=== PATIENT | male | born 1960 | race Caucasian/White ===

== ENCOUNTER 2025-02-16 14:10 | Inpatient (IN) | payer MEDICARE ==
[~2025-02-16] VITALS: Ht 175.3 cm; Wt 83.5 kg
[2025-02-16] MEDS ORDERED: ONDANSETRON ODT 4 MG TAB.RAPDIS ONE (15:15)
[2025-02-16] MEDS ORDERED: MORPHINE SULFATE 4 MG/1 ML DISP.SYRIN ONE (15:15)
[2025-02-16] MEDS: MORPHINE SULFATE 4 MG/1 ML DISP.SYRIN IM ONE (15:19)
[2025-02-16] MEDS: ONDANSETRON ODT 4 MG TAB.RAPDIS SL ONE (15:19)
[2025-02-16] MEDS ORDERED: LORAZEPAM 1 MG TABLET ONE (16:18)
[2025-02-16] MEDS: LORAZEPAM 0.5 MG TABLET PO ONE (16:21)
[2025-02-16] MEDS ORDERED: CYCL5TAB PO (17:30)
[2025-02-16] MEDS ORDERED: BUPR1PAT22 TP (17:30)
[2025-02-16] MEDS ORDERED: DULO30CA2 PO (17:30)
[2025-02-16] MEDS ORDERED: DICL25CA PO (17:30)
[2025-02-16] MEDS ORDERED: GABA-588 PO (17:31)
[2025-02-16] MEDS ORDERED: NALO1DIS IM (17:31)
[2025-02-16] MEDS ORDERED: MAGNESIUM HYDROXIDE 30 ML LIQUID UDC PO PRN (19:45)
[2025-02-16] MEDS ORDERED: MAG HYDROX/AL HYDROX/SIMETH 30 ML LIQUID UDC PO PRN (19:45)
[2025-02-16] MEDS ORDERED: ZOLPIDEM 5 MG TABLET PO PRN (19:45)
[2025-02-16] MEDS ORDERED: LORAZEPAM 1 MG TABLET PO PRN (19:45)
[2025-02-16 20:00] VITALS: BP 196/85; TEMP 98.2; O2SAT 97
[2025-02-16] MEDS: LISINOPRIL 20 MG TABLET PO SCH (20:10)
[2025-02-16] MEDS: BLOOD SUGAR DIAGNOSTIC 1 EACH STRIP VI ONE (20:11)
[2025-02-16] MEDS: ACETAMINOPHEN 325 MG TABLET PO PRN (20:15)
[2025-02-16] MEDS ORDERED: hydrALAZINE HCL 25 MG TABLET PO PRN (21:00)
[2025-02-17] MEDS: LORAZEPAM 1 MG TABLET PO PRN (03:17)
[2025-02-17] MEDS ORDERED: MELA1TAB27 PO (04:57)
[2025-02-17 08:24] VITALS: BP 127/59; TEMP 97.7; O2SAT 98
[2025-02-17] MEDS: FLUOXETINE HCL 10 MG CAPSULE PO SCH (10:47)
[2025-02-17] MEDS: GABAPENTIN 300 MG CAPSULE PO SCH (13:22)
[2025-02-17] MEDS: CYCLOBENZAPRINE HCL 10 MG TABLET PO PRN (13:22)
[2025-02-17 16:45] VITALS: BP 129/68; TEMP 98.2; O2SAT 97
[2025-02-17 20:06] VITALS: BP 130/62; TEMP 97.9; O2SAT 98
[2025-02-17] MEDS: AMITRIPTYLINE HCL 25 MG TABLET PO SCH (20:41)
[2025-02-17] MEDS: ATORVASTATIN 20 MG TABLET PO SCH (20:41)
[2025-02-18 07:57] VITALS: BP 125/62; TEMP 98.2; O2SAT 96
[2025-02-18 09:35] LABS: BASOPHILS % (AUTO) 0.5 % (0.0-2.0); EOSINOPHILS # (AUTO) 0.4 K/uL (0.0-0.7); EOSINOPHILS % (AUTO) 5.5 % (0.0-7.0); HEMATOCRIT 40.9 % (36.7-47.1); HEMOGLOBIN 14.2 g/dL (12.5-16.3); LYMPHOCYTES # (AUTO) 1.9 K/uL (0.8-4.8); LYMPHOCYTES % (AUTO) 25.3 % (20.5-51.5); MEAN CORPUSCULAR HEMOGLOBIN 34.7 uug (23.8-33.4); MEAN CORPUSCULAR HGB CONC 35 g/dL (32.5-36.3); MEAN CORPUSCULAR VOLUME 99.8 fL (73.0-96.2); MONOCYTES # (AUTO) 0.6 K/uL (0.1-1.30); MONOCYTES % (AUTO) 7.6 % (0.0-11.0); NEUTROPHILS # (AUTO) 4.6 K/uL (1.8-8.9); NEUTROPHILS % (AUTO) 61.1 % (38.5-71.5); PLATELET COUNT (AUTO) 258 K/uL (152-348); RED CELL DISTRIBUTION WIDTH 14.8 % (12.1-16.2); WHITE BLOOD COUNT (AUTO) 7.6 K/uL (3.6-10.2)
[2025-02-18 09:44] LABS: ALBUMIN 3.8 g/dL (3.4-5.0); BILIRUBIN,TOTAL 0.3 mg/dL (0.2-1.0); CALCIUM 9.9 mg/dL (8.5-10.1); CREATININE 1.1 mg/dL (0.6-1.3); MAGNESIUM 2.4 mg/dL (1.8-2.4); PHOSPHOROUS 3.4 mg/dL (2.5-4.9); POTASSIUM 4.4 mmol/L (3.5-5.1); TOTAL PROTEIN, SERUM 7.4 g/dL (6.4-8.2)
[2025-02-18 09:50] LABS: THYROID STIMULATING HORMONE 1.769 mIU/mL (0.358-3.740)
[2025-02-18] MEDS: HYDROCODONE/APAP 5-325MG TABLET PO PRN (13:10)
[2025-02-18 16:39] VITALS: BP 132/72; TEMP 98.5; O2SAT 97
[2025-02-18 20:06] VITALS: BP 130/68; TEMP 98.3; O2SAT 96
[2025-02-19 08:47] VITALS: BP 125/74; TEMP 98.2; O2SAT 98
[2025-02-19 15:55] VITALS: BP 134/68; TEMP 98; O2SAT 98
[2025-02-19] MEDS: HYDROXYZINE PAMOATE 25 MG CAPSULE PO PRN (17:57)
[2025-02-19 19:47] VITALS: BP 115/69; TEMP 98.2; O2SAT 94
[2025-02-20 08:09] VITALS: BP 120/68; TEMP 98; O2SAT 96
[2025-02-20] MEDS: ASPIRIN EC 81 MG TABLET.DR PO SCH (09:06)
[2025-02-20] MEDS: CYANOCOBALAMIN 1,000 MCG TABLET PO SCH (09:07)
[2025-02-20] MEDS: NICOTINE 14 MG/24HR PATCH TD SCH (13:20)
[2025-02-20] MEDS: OXYCODONE HCL 5 MG TABLET PO PRN (15:16)
[2025-02-20 15:54] VITALS: BP 145/69; TEMP 98; O2SAT 98
[2025-02-20 20:00] VITALS: BP 111/59; TEMP 97.6; O2SAT 97
[2025-02-21 07:30] VITALS: BP 120/65; TEMP 98.2; O2SAT 98
[2025-02-21 15:28] VITALS: BP 115/67; TEMP 98; O2SAT 98
[2025-02-21 20:00] VITALS: BP 102/73; TEMP 97.6; O2SAT 97
[2025-02-22 08:22] VITALS: BP 124/76; TEMP 98.3; O2SAT 96
[2025-02-22] MEDS: FLUOXETINE HCL 10 MG CAPSULE PO SCH (09:09)
[2025-02-22] MEDS: OXYCODONE HCL 5 MG TABLET PO PRN (12:28)
[2025-02-22 16:53] VITALS: BP 126/63; TEMP 98.2; O2SAT 98
[2025-02-22 20:00] VITALS: BP 103/59; TEMP 97.5; O2SAT 97
[2025-02-23 08:20] VITALS: BP 152/62; TEMP 98; O2SAT 98
[2025-02-23] MEDS: FLUOXETINE HCL 20 MG CAPSULE PO SCH (09:44)
[2025-02-23 16:54] VITALS: BP 124/65; TEMP 97.5; O2SAT 97
[2025-02-23 20:13] VITALS: BP 148/66; TEMP 98.1; O2SAT 98
[2025-02-23] MEDS: AMITRIPTYLINE HCL 50 MG TABLET PO SCH (20:13)
[2025-02-23] MEDS ORDERED: AMITRIPTYLINE HCL 25 MG TABLET PO SCH (21:00)
[2025-02-24 08:20] VITALS: BP 146/73; TEMP 98; O2SAT 100
[2025-02-24 16:35] VITALS: BP 115/70; TEMP 98.4; O2SAT 98
[2025-02-24 19:50] VITALS: BP 120/71; TEMP 98.5; O2SAT 98
[2025-02-24] MEDS ORDERED: AMITRIPTYLINE HCL 50 MG TABLET ONE (21:58)
[2025-02-25 08:03] VITALS: BP 142/67; TEMP 98; O2SAT 96
[2025-02-25 15:09] VITALS: BP 121/71; TEMP 98; O2SAT 96
[2025-02-25 20:00] VITALS: BP 130/54; TEMP 97.8; O2SAT 96
[2025-02-26 08:19] VITALS: BP 128/60; TEMP 98; O2SAT 98
[2025-02-26 15:29] VITALS: BP 130/50; TEMP 98; O2SAT 96
[2025-02-26 20:00] VITALS: BP 109/69; TEMP 98; O2SAT 95
[2025-02-26] MEDS: ZOLPIDEM 5 MG TABLET PO PRN (22:04)
[2025-02-27 08:03] VITALS: BP 131/69; TEMP 98; O2SAT 98
[2025-02-27 09:11] VITALS: BP 131/69
== END 2025-02-27 14:00 | DRG 885 ==
LOC: ER 14:10 → GPS 18:18
PROVIDERS: ADMIT Psychiatry & Neurology Psychiatry; ATTEND Internal Medicine
DX: F33.2 Major depressive disorder, recurrent severe without psychotic features (principal); R45.851 Suicidal ideations; G89.4 Chronic pain syndrome; Z88.1 Allergy status to other antibiotic agents; Z91.51 Personal history of suicidal behavior; E66.9 Obesity, unspecified; Z68.27 Body mass index [BMI] 27.0-27.9, adult; G62.9 Polyneuropathy, unspecified; E78.5 Hyperlipidemia, unspecified; I10 Essential (primary) hypertension; I25.10 Atherosclerotic heart disease of native coronary artery without angina pectoris; E53.8 Deficiency of other specified B group vitamins; M15.9 Polyosteoarthritis, unspecified; M54.12 Radiculopathy, cervical region; Z87.891 Personal history of nicotine dependence; Z87.828 Personal history of other (healed) physical injury and trauma
CPT/HCPCS: 36415; 83735; 84100; 84443; 85025; 93005; J2270; Q0162